=== PATIENT | male | born 1995 | race Caucasian/White ===

== ENCOUNTER 2024-12-02 04:48 | Emergency (ER) | payer SELFPAY ==
[2024-12-02 04:54] VITALS: BP 153/103; BMI 27.1
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
[2024-12-02 06:52] LABS: % Basophils 1.7 % (0-2); % Eosinophils 7.8 % (0-6); % Immature Granulocytes 0.1 % (0-0.5); % Lymphocytes 30.6 % (20.5-51.1); % Monocytes 8.4 % (1.7-9.3); % Neutrophils 51.4 % (42.2-75.2); Absolute Basophils 0.1 10^3/uL (0-0.2); Absolute Eosinophils 0.6 10^3/uL (0-0.7); Absolute Lymphocytes 2.4 10^3/uL (1.2-3.4); Absolute Monocytes 0.7 10^3/uL (0.1-0.6); Hematocrit 36.8 % (39.0-52.0); Hemoglobin 11.7 g/dL (13.0-18.0); Mean Corp Hgb Conc. 31.8 g/dL (33.0-37.0); Mean Corpuscular Volume 84.8 fL (80.0-94.0); Mean Platelet Volume 8.8 fL (7.4-10.4); Nucleated Red Blood Cells % 0 % (-); Platelet Count 316 10^3/uL (130-400); Red Blood Cell Count 4.34 10^6/uL (4.70-6.10); Red Cell Dist. Width 16.8 % (11.5-14.5); White Blood Cell Count 7.7 10^3/uL (4.8-10.8)
[2024-12-02 07:05] LABS: ALT (SGPT) 37 U/L (0-50); AST (SGOT) 51 U/L (17-59); Albumin 3.9 g/dl (3.5-5.0); Alkaline Phosphatase 78 U/L (38-126); Blood Urea Nitrogen 7 mg/dl (9-20); Calcium 8.5 mg/dl (8.4-10.2); Carbon Dioxide 22 mmol/L (22-30); Chloride 108 mmol/L (98-107); Estimated Creatinine Clearance > 125 ml/min; Glucose 84 mg/dl (70-99); Sodium 142 mmol/L (135-145); Total Bilirubin 0.3 mg/dl (0.2-1.3); Total Protein 6.8 g/dl (6.3-8.2); eGFR > 60.00
[2024-12-02 07:13] LABS: COVID-19 Antigen Negative (Negative)
[2024-12-02 12:53] VITALS: BP 165/105
[2024-12-02 20:43] VITALS: BP 176/118
--- NOTE | 2024-12-02 20:45 | ED.CRISIS ---
ED Crisis Note
ED Crisis Note
Subjective:
No physical acute complaints except for anxiousness
Objective:
Nontoxic no distress. But diastolic blood pressure 117
Assessment/Plan:
Patient is post to be on blood pressure medication has not been on it for months. Also feeling anxious. He is pretty sure it was amlodipine. Reasonable to start a dose of amlodipine now. Will also give some Ativan. Recheck blood pressure prior
to leaving.
[2024-12-02] MEDS: NORVASC 5 MG PO (20:54)
[2024-12-02] MEDS: ATIVAN 1 MG PO (20:54)
[2024-12-02 21:05] LABS: Amphetamines Negative (Negative); Barbiturates Negative (Negative); Benzodiazepines Negative (Negative); Buprenorphine Negative (Negative); Cocaine Negative (Negative); Marijuana Positive (Negative); Methadone Negative (Negative); Methamphetamines Negative (Negative); Opiates Negative (Negative); Phencyclidine Negative (Negative); Tricyclic Antidepressants Negative (Negative)
== END 2024-12-02 22:32 ==
LOC: EMR 04:48
PROVIDERS: CONSULT PHYSICIAN Psychiatry & Neurology Psychiatry; EMERGENCY PHYSICIAN Student in an Organized Health Care Education/Training Program
DX: R45.851 Suicidal ideations (principal); F60.3 Borderline personality disorder; I10 Essential (primary) hypertension
CPT/HCPCS: 99285; 80053; 80306; 85025; 87811